=== PATIENT | female | born 1970 | race Caucasian/White ===

== ENCOUNTER 2017-10-23 15:08 | Emergency (ER) | payer BC ==
[~2017-10-23] VITALS: Ht 165.1 cm; Wt 74.8 kg
[2017-10-23 16:36] VITALS: BP 168/82
[2017-10-23] MEDS ORDERED: ACETAMINOPHEN 325 MG TAB PO ONE (17:45)
[2017-10-23] MEDS ORDERED: LIDOCAINE 1% (LOCAL ANESTH.) PF 5ml SDV ID ONE (17:45)
== END 2017-10-23 18:29 | disposition home or self-care (01) ==
LOC: ER 15:12
DX: S01.511A Laceration without foreign body of lip, initial encounter (principal); M25.532 Pain in left wrist; W18.39XA Other fall on same level, initial encounter; Y93.01 Activity, walking, marching and hiking; Y92.89 Other specified places as the place of occurrence of the external cause; Y99.8 Other external cause status
CPT/HCPCS: 12011; 70160; 73130